=== PATIENT | female | born 1955 | race Caucasian/White ===

== ENCOUNTER → 2018-05-30 11:11 | Outpatient (CLI) | payer BC, SELFPAY ==
--- NOTE | 2018-05-30 | IMM_PTH ---
PATIENT: BRITTA CARROLL LOC: [facility] U#:[id number] AGE/SX: 69/F ROOM: RE05/30/[address]: Dr. Santosh Felix MD : 1955 BED: DIS: SPEC #: [id number] RECD: 06/02/18 12:42 STATUS: [facility] REQ #: [id number] RUSSELL: 05/30/18 00:[address]: Santosh Felix DEPT: IMMUNOHISTOCHEMISTRY RECD BY: Jacey Nixon ENTERED: 06/02/18 12:43 SP TYPE: IMMUNO OTHR DR: Dr. Tarun Fuentes III, MD Tissues: Right breast, NOS Procedures: Calponin-1(initial) CALPONIN-1 (add) P40 (add) PHYSICIAN & INSTITUTION [place] [facility] [id number] SPECIMEN INFORMATION: Tissue Source: Right breast Clinical Info: Right breast 11 o'clock microcalcifications Specimen Number: [id number] #1 & 3 CPT code: 93704, 24729 x3 METHODOLOGY: Deparaffinized sections of prefer/formalin-fixed tissue or PAP/DQ stained slides are incubated with monoclonal/polyclonal antibodies/oligonucleotide probes. Localization is made via biotin free immunoperoxidase method. Appropriate controls are performed and reacted as expected. Results on target cell population are indicated in the following table: RESULTS: ANTIBODY / CLONE RESULT Block 1 P40 (BC28) positive Calponin-1 (BD075D) positive Block 3 P40 (BC28) positive Calponin-1 (WI290J) positive These tests were developed and their performance characteristics determined by [facility]. They may not have been cleared or approved by the [place]. Food and Drug Administration. The FDA has determined that such clearance or approval is not necessary. INTERPRETATION: Right breast, 11 o'clock microcalcifications, stereotactic core biopsy: Negative for malignancy. ANSHU:nano 06/03/18
--- NOTE | 2018-05-30 | BRBX_PTH ---
PATIENT: BRITTA CARROLL LOC: [facility] U#:[id number] AGE/SX: 69/F ROOM: RE05/30/[address]: Dr. Santosh Felix MD : 1955 BED: DIS: SPEC #: [id number] RECD: 05/30/18 14:33 STATUS: [facility] REQ #: [id number] RUSSELL: 05/30/18 00:[address]: Santosh Felix DEPT: SURGICAL PATHOLOGY RECD BY: Scotty Sam ENTERED: 05/30/18 14:33 SP TYPE: BREAST BX OTHR DR: Dr. Tarun Fuentes III, MD Tissues: Right breast, NOS Procedures: Surgery Specimen Level IV HEADER OPERATION: Right stereotactic breast biopsy PRE-OP DIAGNOSIS: Right breast 11 o'clock position microcalcifications TISSUE SUBMITTED: Right breast core tissue ISCHEMIC TIME: 1 minute FIXATION TIME: 55.5 hours MICROSCOPIC DIAGNOSIS Right breast, 11 o'clock microcalcifications, stereotactic core biopsy: Fibrocystic changes, adenosis and intraductal hyperplasia without atypia. Negative for malignancy. Focal microcalcifications. ANSHU:nano 06/02/18 COMMENT Immunohistochemistry ([id number]) supports the above diagnosis. Correlation with clinical, radiologic findings and appropriate follow up are necessary. MICROSCOPIC DESCRIPTION Slides are reviewed. GROSS DESCRIPTION Received is one container labeled with the patient's name and not further designated. The specimen consists of multiple elongated fragments of malin-yellow fibroadipose tissue that in aggregate measure 6 x 3 x 0.3 cm. The entire specimen is submitted in three cassettes. / ANSHU:nano 05/30/18 TC:5 CPT: 00379
--- NOTE | 2018-05-30 18:32 | OP.PCM_ITS ---
Report of Operation Date of Procedure: 05/30/18 Pre-Operative Diagnosis: right breast microcalcifications-upper outer quadrant Post-Operative Diagnosis: right breast microcalcifications-upper outer quadrant - successful stereotactic biopsy Surgery/Procedure Performed:: right vacuum-assisted core needle stereotactic biopsy with specimen radiograph and marker placement adaptive physical education teacher: None Type of Anesthesia:: Local Specimen's removed: right breast Description of Procedure: The patient was brought to the stereotactic suite and informed of the plan course of events. The right breast was positioned in the true lateral to medial position on the [facility] stereotactic table. Mammographic image demonstrated the area of abnormality to be located in the center of the radiograph. Stereotactic images were then obtained which demonstrated good positioning of the abnormality for biopsy with good stroke mook parameters. The breast was cleaned with Betadine area did one percent lidocaine was used to anesthetize the skin and a small stab incision made. An 8-gauge mammotome needle was placed into the pre- fire position. Stereotactic images demonstrated good positioning around the planned biopsy site. Local anesthetic injected deeply in the breast. The needle was deployed. Post deployment images demonstrated good positioning of the planned biopsy site. Multiple vacuum-assisted samples were obtained and [id number] fashion. Specimen radiograph demonstrated micro-calcifications in the sample. A gel marker clip was deployed. Post biopsy images demonstrated good position of the clip relative the biopsy cavity. The breast was removed from compression. Steri-Strips and a dressing applied. Post procedure mammogram images were obtained.
== END ==
PROVIDERS: Family Provider Family Medicine; PCP Family Medicine; Referring Provider Surgery; Visit Provider Surgery
DX: R92.0 Mammographic microcalcification found on diagnostic imaging of breast (principal)
CPT/HCPCS: 19081; 88305; 88341; 88342; J7050; A4648

== ENCOUNTER 2023-06-13 20:00 | Outpatient (CLI) | payer MEDICARE, SELFPAY | END 2023-06-13 23:59 | disposition home or self-care (01) | PROVIDERS: PCP Family Medicine; Referring Provider Physician Assistant; Visit Provider Physician Assistant | DX: G47.33 Obstructive sleep apnea (adult) (pediatric) (principal); G47.10 Hypersomnia, unspecified; I10 Essential (primary) hypertension; R06.83 Snoring | CPT/HCPCS: 95811 ==

== ENCOUNTER → 2024-11-02 | Outpatient (CLI) | payer MEDICARE, SELFPAY ==
--- NOTE | 2024-11-02 14:00 | CDU_ITS ---
Reason For Study Reason For Study: Carotid FMD Rt. Velocities/BP Lt. Velocities/BP Prox CCA 89/14 cm/sec. Prox CCA 92/15 cm/sec. Mid CCA 52/11 cm/sec. Mid CCA 49/10 cm/sec. Dist CCA 49/12 cm/sec. Dist CCA 40/11 cm/sec. Prox ICA 45/13 cm/sec. Prox ICA 50/15 cm/sec. Mid ICA 65/21 cm/sec. Mid ICA 52/15 cm/sec. Dist ICA 198/56 cm/sec. Dist ICA 186/58 cm/sec. Rt. ICA/CCA = 3.81. Lt. ICA/CCA = 3.80. Prox ECA 49/5 cm/sec. Prox ECA 56/8 cm/sec. Rt. Vert. 42/10 cm/sec. Lt. Vert. 50/11 cm/sec. Right Extracranial There is intimal thickening but no significant atherosclerotic plaque noted in the right common carotid artery. There is intimal thickening but no significant atherosclerotic plaque noted in the right internal carotid artery. There is intimal thickening but no significant atherosclerotic plaque noted in the right external carotid artery. Antegrade flow is noted in the right vertebral artery. Left Extracranial There is heterogeneous, irregular atherosclerotic plaque noted in the left common carotid artery. There is intimal thickening but no significant atherosclerotic plaque noted in the left internal carotid artery. There is intimal thickening but no significant atherosclerotic plaque noted in the left external carotid artery. Antegrade flow is noted in the left vertebral artery. Procedure Carotid Duplex [id number]. This is a Carotid Duplex examination using B-mode, color flow and specral Doppler. Exam performed in department. VL/Carotid Duplex Ultrasound Interpretation Summary Moderate (50-69%) stenosis right extracranial internal carotid without visualiz ed plaque. Lumen irregularity consistent with fibromuscular dysplasia identified in distal vessel. Moderate (50-69%) stenosis left extracranial internal carotid without visualize d plaque. Lumen irregularity consistent with fibromuscular dysplasia identified in distal vessel. Patent and antegrade vertebrals bilaterally. Ordering Physician: Alfie Lopez Referring Physician: Toney Boyd Performed By: Maribeth Dean, ZOE, RVT
== END | disposition home or self-care (01) ==
LOC: CVS 13:59
PROVIDERS: PCP Family Medicine; Referring Provider Surgery Trauma Surgery; Visit Provider Surgery Trauma Surgery
DX: R09.89 Other specified symptoms and signs involving the circulatory and respiratory systems (principal)
CPT/HCPCS: 93880